=== PATIENT | female | born 1950 | race Caucasian/White ===

== ENCOUNTER 2022-07-28 11:00 | Outpatient (RCR) | payer MEDICARE, BC, SELFPAY | END 2022-11-25 23:59 | disposition home or self-care (01) | PROVIDERS: PCP Family Medicine; Visit Provider Family Medicine | DX: M43.6 Torticollis (principal); M54.2 Cervicalgia; Z51.89 Encounter for other specified aftercare | CPT/HCPCS: 97012; 97110; 97140; 97162; 97535 ==

== ENCOUNTER 2023-07-10 11:15 | Outpatient (RCR) | payer MEDICARE, BC, SELFPAY ==
--- NOTE | 2023-06-26 12:52 | PT.OPEX ---
[facility] [place] Outpatient Eval PT [facility] Outpatient Eval Start: 06/26/23 10:56 Freq: Status: Active Protocol: Document 06/26/23 10:56 VIKI (Rec: 06/26/23 12:52 [facility] [id number]) E-signed By Jacquie Cutler PT Physical Therapy Outpatient Evaluation Insurance Information Recert Due Date 09/23/23 Medical Diagnosis LEFT HIP OA Treating Diagnosis LEFT HIP PAIN Referring MD JENNIE THOMAS Subjective Subjective PATIENT REPORTS LEFT ANTERIOR HIP/GROIN PAIN SINCE 2022 THAT SHE FEELS MORE WHEN SHE IS STEPPING LATERALLY LEADING WITH LEFT LEG OR WHEN SHE IS WALKING AND HER STRIDE IS LONGER WHERE SHE FEELS A CATCH AND PAIN BRING LEG FWD FOR NEXT STEP. 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 LASTLY, SHE REPORTS WEEKLY VISITS WITH THE CHIROPRACTOR THAT ADJUSTS AND MOBILIZES FROM THE CERVICAL SPINE TO THE HIPS. SHE IS HERE TO SEE IF THERE IS ANYTHING ELSE SHE SHOULD BE DOING TO IMPROVE HER FLEXIBILITY AND STRENGTH. Date of Last Physician Visit 06/09/23 Current Work Status Retired Preferred Name JOANA Precautions Treatment Precautions/Contraindications XRAYS REVEALED MODERATE DEGENERATIVE CHANGES OF HER LEFT HIP THAT HAVE PROGRESSED SIGNIFICANTLY SINCE THE LAST XRAYS IN 2017. Therapy Limitations/Systems Review Not Limited Objective Other/Pertinent Objective KNEE ROM R WNL L WNL HIP ROM Flexion: WNL Extension: WNL Internal Rotation: 5 DEGREES LEFT / RIGHT NT External Rotation WNL Abduction 35 DEGREES ON LEFT, 45 ON RIGHT LLE MMT: Hip flexion: R 4+/5 L 4+/5 Hip abduction: R 4/5 L 4/5 Hip extension: R 4/5 L 4/5 Knee flexion: R 5/5 L 5/5 Knee extension: R 5/5 L 5/5 SPECIAL TEST Hip quadrant test: (+) CHANTEL test: (-) FADIR test: (+) Scour test: (-) Trochanteric Bursitis Test- Bursitis: (-) Glute med/min tendinopathy: (- ) JOINT MOBILITY/PALPATION: SIGNIFICANT HYPMOBILITY OF LUMBAR SPINE; BILATERAL GLUT MED TENDERNESS TX: SUPINE TRUNK ROTATION 3 X 15 SEC SIDELYING CLAM X 20 PRONE PRESS UP ON ELBOWS 10 X 5 SEC STDG LUMBAR EXT 10 X 5 SEC SUPINE ON IRAQI BALL ABDOMINAL CRUNCH X 20 SUPINE HOOKLYING ON IRAQI BALL LOWER AB CRUNCH X 20 PRONE ON IRAQI BALL OPP UE/LE X 10 Assessment Assessment/Impression PATIENT IS A [address] JENNIE THOMAS REFERRED TO PHYSICAL THERAPY TO EVAL AND TX LEFT HIP PAIN. PMHX INCLUDES BUT NOT LIMITED TO RIGHT ADITYA (2016) AND REVISION (2017). SHE REPORTS A IDIOPATHIC ONSET WINTER OF LAST YEAR THAT HAS STEADILY WORSENED. SHE HAS PAIN ABOUT ANTERIOR/MEDIAL HIP AND GROIN WITH LONG STRIDES AND LATERAL STEPPING. IN ADDITION TO THE ACTIVITY MENTIONED ABOVE. 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 MUSCULARLY, SHE HAS EXCELLENT FLEXIBILITY WITH THE EXCEPTION OF HIP IR BUT HIS LIKELY LIMITED D/T THE MODERATE OA REVEALED IN HER XRAYS. WE ADDRESS THE TRUNK EXTENSION AND ADDED CORE STRENGTHENING AND TRUNK ROTATION TO HER DAILY ROUTINE WITH PLANS TO CHECK BACK IN 2 WEEKS TO ADDRESS ANY CHALLENGES WITH THE HEP. SHE IS PLEASED WITH THE ADDITIONAL EXERCISES AND IN AGREEMENT WITH POC AND FREQ . SHE WOULD BENEFIT FROM PHYSICAL THERAPY TO ADDRESS LUMBAR AND HIP STIFFNESS WELL CORE/BLE STRENGTHENING . Primary Functional Limitations STAIRS TRANSFERS PROLONGED STDG Plan of Care Rehabilitation Potential Good Physical Therapy Goals 1. DECREASE L HIP/THIGH PAIN TO </3/10 WITH DAILY ACTIVITIES AND WITH THE PROGRESSION OF PHYSICAL THERAPY PROGRAM OVER THE NEXT 3-4 WEEKS 2. IMPROVE L HIP IR AROM TO WFL OVER THE NEXT 4-6 WEEKS 3. IMPROVE CORE/LE COMPLEX STRENGTH OVER THE NEXT 6-8 WEEKS FOR RETURN TO TRANSFERS WITH EASE, NORMAL GAIT WITH/ WITHOUT AD, AND STANDING/ WALKING >10MIN WITHOUT A FLARE UP OF PAIN 4. PATIENT WILL BE INDEPENDENT WITH HIS HEP WITHING 6-8 WEEKS FOR PROGRESSION TOWARD ABOVE GOALS, ONGOING IMPROVEMENT OF PAIN/SYMPTOMS, ROM, STRENGTH, AND MOBILITY TO RETURN TO DAILY ACTIVITIES AND FAMILY CENTERED ACTIVITIES W/O FLARE UP OF PAIN/SYMPTOMS Coordination/Communication With Referral Source Treatment Plan/Direct Interventions Manual Therapy,Neuromuscular Re-ed,Self-Care/Home Management,Therapeutic Activities,Therapeutic Exercises Patient Will Be Discharged From Therapy Completion of LTG(s), Independently Progressing Evaluation Billing Untimed Code Treatment Minutes 20 PT Eval No Charge No Complexity Moderate Certification Information Initial Certification Date 06/26/23 Ending Certification Date 09/23/23 Provider Signature Shows Agreement With POC & Medical Necessity Physician Signature & Date Requested Please Sign/Date Here Physician Comment/Change : Physician NPI Number #
== END 2023-11-07 23:59 | disposition home or self-care (01) ==
PROVIDERS: PCP Family Medicine; Visit Provider Family Medicine
DX: M16.12 Unilateral primary osteoarthritis, left hip (principal); M25.552 Pain in left hip; Z51.89 Encounter for other specified aftercare
CPT/HCPCS: 97110; 97162